=== PATIENT | female | born 1995 | race Two or more races ===

== ENCOUNTER 2016-09-01 08:38 | Emergency (ER) | payer SELFPAY ==
[~2016-09-01] VITALS: Ht 167.6 cm; Wt 74.8 kg
[2016-09-01 08:42] VITALS: BP 130/90
[2016-09-01 09:36] LABS: Urine Bilirubin Negative (Negative); Urine Color Yellow (Yellow); Urine Glucose Normal (Normal); Urine Ketone Negative (Negative); Urine Mucus FEW (None Seen); Urine Nitrite Negative (Negative); Urine RBC 4 /hpf (0 - 4); Urine Squamous Epithelial Cell MOD /hpf (<5); Urine Urobilinogen Normal (Negative)
[2016-09-01 09:49] LABS: Urine Blood 1+ /uL (Negative)
== END 2016-09-01 12:15 | disposition home or self-care (01) ==
LOC: ER 08:39
DX: O20.0 Threatened abortion (principal); O23.41 Unspecified infection of urinary tract in pregnancy, first trimester; Z3A.01 Less than 8 weeks gestation of pregnancy
CPT/HCPCS: 36415; 76801; 81001; 84702

== ENCOUNTER 2017-03-06 20:27 | Observation (INO) | payer MEDICAID | END 2017-03-06 23:15 | disposition home or self-care (01) | DRG 566 | LOC: LDRP 20:27 | PROVIDERS: ADMIT Obstetrics & Gynecology; ATTEND Obstetrics & Gynecology | DX: O36.8130 Decreased fetal movements, third trimester, not applicable or unspecified (principal); Z3A.32 32 weeks gestation of pregnancy | CPT/HCPCS: 59025; 76818; 81002; G0378 ==